=== PATIENT | male | born 1965 | race Caucasian/White ===

== ENCOUNTER 2021-02-07 09:22 | Outpatient (CLI) | payer OTHER, SELFPAY ==
--- NOTE | ~2021-02-07 | CT_ITS ---
EXAMINATION: CT lung screening DATE: 02/07/2021 09:53 INDICATION: Personal history of nicotine dependence, current smoker with 36 pack year history TECHNIQUE: Computed tomography (CT) of the chest was performed without intravenous contrast. The dose -length product (DLP) was 458.77 mGy-cm. 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 COMPARISON: None FINDINGS: There is mild emphysema. There are multiple 1 to 2 mm nodules in the lungs with an upper wang ng zone predominance. There is no pleural effusion or pneumothorax. The lungs are free of acute opaci ties. The gallbladder is surgically absent. No pathologically enlarged thoracic lymph nodes are ident ified. The heart size is normal. There are bridging osteophytes at multiple levels in the spine, cons istent with diffuse idiopathic skeletal hyperostosis (DISH). IMPRESSION: 1. Lung-RADS category 2: Benign appearance or behavior. Continue annual screening with noncontrast lo w-dose chest CT in 12 months. Reviewed, dictated and finalized at location A. IMPRESSION: 1. Lung-RADS category 2: Benign appearance or behavior. Continue annual screeni ng with noncontrast low-dose chest CT in 12 months.
== END 2021-02-07 09:23 | disposition home or self-care (01) ==
PROVIDERS: PCP Emergency Medicine; Visit Provider Emergency Medicine
DX: Z12.2 Encounter for screening for malignant neoplasm of respiratory organs (principal); Z87.891 Personal history of nicotine dependence
CPT/HCPCS: 71271

== ENCOUNTER 2021-02-21 16:06 | Outpatient (CLI) | payer OTHER, SELFPAY ==
--- NOTE | ~2021-02-21 | US_ITS ---
EXAMINATION: US soft tissue groin LT DATE: 02/21/2021 16:45 INDICATION: Left groin pain TECHNIQUE: Multiple grayscale and Doppler ultrasound images of the left inguinal region were obtained . COMPARISON: None FINDINGS: On one set of the cine images acquired by the fabricator artificial breast there appears to be a small amount of mobil e soft tissue within a small left inguinal hernia with hernia sac measuring approximately 1.5 x 1.9 x 1.8 cm in maximal diameter. Attempt was made with real-time imaging by the radiologist to ascertain the location of the suspected hernia and with this Flex either a direct or indirect hernia. The suspe cted hernia was however unable to be definitively identified and may have reduced. Assessment is chun jonathon also limited by shadowing scar tissue in the region reportedly related to childhood inguinal ashley ia repair. IMPRESSION: 1. Likely small left inguinal hernia seen on the initial cine images recorded by the fabricator artificial breast but unable to be identified on subsequent real-time imaging. Consider CT for more definitive determinatio n. Reviewed, dictated and finalized at location A. IMPRESSION: 1. Likely small left inguinal hernia seen on the initial cine images recorded b y the fabricator artificial breast but unable to be identified on subsequent real-time imaging. Consider CT for more definitive determination.
== END 2021-02-21 16:07 | disposition home or self-care (01) ==
PROVIDERS: PCP Emergency Medicine; Visit Provider Surgery
DX: R10.32 Left lower quadrant pain (principal); Z87.19 Personal history of other diseases of the digestive system; Z98.890 Other specified postprocedural states
CPT/HCPCS: 76882

== ENCOUNTER 2021-12-27 09:57 | Outpatient (CLI) | payer OTHER, SELFPAY ==
--- NOTE | ~2021-12-27 | MMUS_ITS ---
EXAMINATION: MM diagnostic mammo unilat LT, US breast LT limited HISTORY: Left breast lump TECHNIQUE: Left CC and bilateral MLO views.. CAD analysis was submitted and interpreted. High resolut ion left subareolar breast ultrasound was performed. COMPARISON: None BREAST PARENCHYMAL COMPOSITION: There are scattered areas of fibroglandular density. FINDINGS: MAMMOGRAPHIC FINDINGS: There is thyroiditis stroma in the subareolar area consistent with mild left gynecomastia. No soft ti ssue mass, architectural distortion, malignant calcification, skin thickening or retraction is detect ed. ULTRASOUND: Fibroglandular stroma is noted in the subareolar area. No discrete mass lesion is noted IMPRESSION: 1. Probable mild gynecomastia 2. 6 month diagnostic left mammogram follow-up is recommended BI-RADS category 3, probably benign findings. Reviewed, dictated and finalized at location A. IMPRESSION: 1. Probable mild gynecomastia 2. 6 month diagnostic left mammogram follow-up is recommended BI-RADS category 3, probably benign findings.
== END 2021-12-27 09:58 | disposition home or self-care (01) ==
PROVIDERS: PCP Emergency Medicine; Visit Provider Emergency Medicine
DX: N63.20 Unspecified lump in the left breast, unspecified quadrant (principal)
CPT/HCPCS: 76642; 77065

== ENCOUNTER 2022-06-20 10:55 | Outpatient (CLI) | payer OTHER, SELFPAY ==
--- NOTE | ~2022-06-20 | US_ITS ---
Thyroid ultrasound. Clinical History: Hypothyroid Findings: Real-time sonography of the thyroid gland was performed. The right lobe measures 4.5 x 2.0 x 2.1 cm. The left lobe measures 4.7 x 1.7 x 1.8 cm. The isthmus is 4 mm in AP diameter. At the posterior aspect of right mid pole, there is a 1.4 x 1.2 x 1.5 cm solid nodule which is essent ially isoechoic, with a thin hypoechoic rim, wider than tall. At the left thyroid mid pole, there is a 0.7 x 0.7 x 0.9 cm isoechoic, wider than tall thyroid nodule , solid. Impression: 1.5 cm nodule at the posterior right thyroid lobe, as detailed above, consistent with TR-3 lesion. Gi iona size, follow-up ultrasound in one year recommended.. 0.9 cm left thyroid lobe nodule, as detailed above, consistent with TR-3 lesion. Given size, no furth er follow-up required. Reviewed, dictated and finalized at location [] OR COST ESTIMATOR Impression: 1.5 cm nodule at the posterior right thyroid lobe, as detailed above, consisten t with TR-3 lesion. Given size, follow-up ultrasound in one year recommended.. 0.9 cm left thyroid lobe nodule, as detailed above, consistent with TR-3 lesion . Given size, no further follow-up required.
== END 2022-06-20 10:56 | disposition home or self-care (01) ==
PROVIDERS: PCP Emergency Medicine; Visit Provider Emergency Medicine
DX: E03.9 Hypothyroidism, unspecified (principal); E04.1 Nontoxic single thyroid nodule
CPT/HCPCS: 76536

== ENCOUNTER 2022-07-05 12:15 | Outpatient (CLI) | payer OTHER, SELFPAY ==
--- NOTE | ~2022-07-05 | MM_ITS ---
MM diagnostic anna LT w nancy DATE: 07/05/2022 12:48 INDICATION: Six-month follow-up of left breast lump. Patient reports lump is improved since 12/27/2021 TECHNIQUE: Bilateral MLO and left ML and CC views. Computer-aided detection. COMPARISON: 12/27/2021 diagnostic left mammogram and limited left breast ultrasound FINDINGS: There is diminished density in the subareolar area of the left breast 12/27/2021. No suspici ous mass or architectural distortion, malignant calcification, skin thickening or retraction is detec lolis. IMPRESSION: BI-RADS Category 2: Benign. Mild left gynecomastia, mildly improved since 12/27/2021 Reviewed, dictated and finalized at Location A. Reviewed, dictated and finalized at location A. 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
== END 2022-07-05 12:16 | disposition home or self-care (01) ==
PROVIDERS: PCP Emergency Medicine; Visit Provider Emergency Medicine
DX: N63.20 Unspecified lump in the left breast, unspecified quadrant (principal); R92.8 Other abnormal and inconclusive findings on diagnostic imaging of breast
CPT/HCPCS: 77061; 77065; G0279

== ENCOUNTER 2022-07-16 12:42 | Observation (INO) | payer OTHER, SELFPAY ==
[2022-07-16] VITALS (24 sets, daily range): BP systolic 99–114; BP diastolic 58–91; PULSE 55–68; RESP 10–22; TEMP 36.1–36.6; O2SAT 93–99; BMI 34.2
--- NOTE | ~2022-07-16 | XR_ITS ---
EXAMINATION: XR chest 1V portable DATE: 07/16/2022 13:24 INDICATION: Hypotension. TECHNIQUE: A single frontal view of the chest was obtained on 2 radiographs. COMPARISON: Chest CT 02/07/2021 FINDINGS: There is mild atelectasis at left lung base. No pleural effusion or pneumothorax. The heart size is normal. IMPRESSION: 1. Mild atelectasis at left lung base. Reviewed, dictated and finalized at location A. 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
--- NOTE | ~2022-07-16 | CT_ITS ---
EXAMINATION: CTA chest DATE: 07/16/2022 15:05 INDICATION: Potential and back and chest pain. TECHNIQUE: Computed tomographic angiography (CTA) of the chest was performed without and with 100 mL Omnipaque-350 intravenous contrast. Volume-rendered 3D-reconstructions of the aorta and large arterie s were constructed by the technologist on a separate workstation. Automated exposure control and iter ative reconstruction technique were employed. The dose-length product was 906.71 mGy-cm. COMPARISON: Chest CT dated 02/07/2021 FINDINGS: Mild emphysema. Mild discoid atelectasis at the lingula. Geographic regions of groundglass opacity in the dependent aspects of the bilateral lower lobes which could represent additional atelectasis or l ess likely pneumonia including COVID pneumonia. No septal line thickening to suggest pulmonary edema. No pleural effusion or pneumothorax. Heart size is normal. Atherosclerotic coronary artery calcifica tion. No pericardial effusion. Mildly aneurysmal ascending thoracic aorta which measures up to 4.2 x 4.1 cm. No dissection.. Likely benign subcentimeter hypodense left thyroid nodule. No pathologically enlarged thoracic lymphadenopathy. Left gynecomastia. Cholecystectomy clips at the gallbladder fossa . 11 mm hyperenhancing splenic lesion with smooth peripheral rim of enhancement most likely represent ing a hemangioma. Moderate thoracic spondylosis with bridging osteophytes at multiple levels consiste nt with diffuse idiopathic skeletal hyperostosis (DISH). IMPRESSION: 1. Mildly aneurysmal ascending thoracic aorta measuring up to 4.2 cm in maximal diameter. No dissecti on. 2. Mild emphysema with groundglass opacities in the dependent lower lobes and favor atelectasis over pneumonia. Reviewed, dictated and finalized at location A. 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 Mildly aneurysmal ascending thoracic aorta measuring up to 4.2 cm in maximal diameter. No dissection. 2. Mild emphysema with groundglass opacities in the dependent lower lobes and f avor atelectasis over pneumonia.
--- NOTE | 2022-07-16 13:03 | ECG_ITS ---
Measurements Intervals [place] Rate: 59 P: 34 [place]: 168 QRS: 48 QRSD: 114 T: 52 QT: 419 QTc: 416 Interpretive Statements SINUS BRADYCARDIA INCOMPLETE RIGHT BUNDLE BRANCH BLOCK BORDERLINE ECG NO PREVIOUS ECG AVAILABLE FOR COMPARISON Electronically Signed On 07-16-2022 13:17:50 CONCRETE BLOCK MOLDER by Will Reyes D.O.
--- NOTE | 2022-07-16 13:16 | ED.RECABL ---
HPI - Recheck/Abnormal Lab/Rx General Chief Complaint: Recheck/Abnormal Lab/Rx Stated Complaint: hypotension Time Seen by Provider: 07/16/22 13:08 History of Present Illness HPI narrative: Patient is a 56-year-old male with a history of hypertension, tobacco use presenting with hypotension. Patient states that he has been feeling generally rundown and increasingly fatigued for the last day. States he was at his PCPs office this morning for a checkup and the nurse noted that he looked very lethargic. They checked his blood pressure and found it to be 60s over 40s. They rechecked it multiple times and he remained hypotensive with systolics in the 70s to 90s. Patient states that he was having some radiating upper back pain that goes into his chest. States he was lightheaded as well. Currently, he states that he just feels tired and achy all over. Denies headache, numbness or weakness, shortness of breath, cough, abdominal pain, nausea or vomiting, diarrhea, worsening leg swelling. Related Data Home Medications Medication Instructions Recorded Confirmed acyclovir 400 mg tablet 400 mg PO BID 02/06/21 07/16/22 carvedilol 6.25 mg tablet (Coreg) 6.25 mg PO Q12H 02/06/21 07/16/22 epinephrine 0.3 mg/0.3 mL 0.3 mg IM ONCE PRN Anaphylaxis 02/06/21 07/16/22 injection, auto-injector (EpiPen) hydrochlorothiazide 25 mg tablet 25 mg PO DAILY 02/06/21 07/16/22 irbesartan 150 mg tablet 150 mg PO DAILY 02/06/21 07/16/22 lovastatin 40 mg tablet 40 mg PO DAILY 02/06/21 07/16/22 multivit with minerals-folic 1 tablet PO DAILY 02/06/21 07/16/22 acid-lycopene 0.4 mg-600 mcg tablet (Men's Daily Multivitamin-Mineral) spironolactone 25 mg tablet 25 mg PO DAILY 02/06/21 07/16/22 albuterol sulfate 90 mcg/actuation 2 puff inhalation Q4-6H PRN 07/16/22 07/16/22 aerosol inhaler Bronchospasm cholecalciferol (vitamin D3) 5,000 units PO DAILY 07/16/22 07/16/22 pregabalin 150 mg capsule 150 mg PO BID pain 07/16/22 07/16/22 Allergies Allergy/AdvReac Type Severity Reaction Status Date / Time Penicillins Allergy Unknown Unknown Verified 07/16/22 21:50 povidone-iodine Allergy Unknown Unknown Verified 07/16/22 21:50 tetanus and diphtheria Allergy Unknown Unknown Verified 07/16/22 21:50 toxoids Review of Systems Review of Systems: All systems reviewed & are unremarkable except as noted in HPI and below PMFSH Past Medical History Medical History (Updated 07/17/22 @ 13:44 by Lauren Wade MD) HTN (hypertension) Hyperlipidemia Neuropathy Varicose vein of leg Surgical History Surgical History H/O colectomy History of bilateral inguinal hernia repair Hx of cholecystectomy Family History Family History Father CHF (congestive heart failure) Mother CHF (congestive heart failure) Sibling Hypertension Unknown Diabetes mellitus Heart disease Cerebrovascular accident Social History Social History (Updated 07/17/22 @ 01:24 by Ashely Wyatt NP) Social History: caffeine use: soda the patient is single and has no children. 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 The patient smokes a pack and half a cigarettes a day. The patient stated he uses drink heavily but only drinks on occasion now code status full code Smoking packs per day: 1.5 Smoking cigarettes per day: 30.0 Years smoked: 38 Smoking pack-years: 57.00 Smoking status: Heavy tobacco smoker Alcohol intake: former Substance use: never Lack of Transportation: No Lack of Food: Never True Current Housing: I Have Housing Concerned About Future Housing: No Difficulty Paying Gas/Electric Bills: No Difficulty Paying for Meds: No Currently Unemployed: No Education: High School Diploma/GED Difficulty w/ Childcare or Family Care: No Spiritual care concerns: No Exam Narrative: GENERAL: Well-appearing, well-nourished, and
[2022-07-16] MEDS: SODIUM CHLORIDE 0.9% IV 1,000 ML 999 ML IV CONT ×2 (13:19→15:51)
[2022-07-16 13:53] LABS: Basophils Absolute Auto 0.1 K/mm3 (0.0-0.1); Basophils Percent Auto 0.7 % (0.2-1.2); Eosinophils Absolute Auto 0.3 K/mm3 (0-0.3); Eosinophils Percent Auto 2.4 % (0-4.4); Hemoglobin 16.6 g/dL (14.0-18.0); Immature Granulocyte Absolute 0.06 K/mm3 (0.00-0.031); Immature Granulocyte Percent A 0.6 % (0-0.5); Lymphocytes Absolute Auto 2.17 K/mm3 (0.9-3.2); Lymphocytes Percent Auto 20.4 % (18.3-44.2); Mean Corpuscular HGB Conc 32.5 g/dl (32-36); Mean Corpuscular Hemoglobin 30.5 pg (26-34); Mean Corpuscular Volume 93.8 fl (80-100); Mean Platelet Volume 9.3 fl (7.4-10.4); Monocytes Absolute Auto 1.3 K/mm3 (0.1-0.6); Monocytes Percent Auto 11.8 % (2.6-8.5); Neutrophils Absolute Auto 6.8 K/mm3 (1.3-6.7); Neutrophils Percent Auto 64.1 % (45.5-73.1); Platelet Count Result 207 k/mm3 (150-375); Red Blood Count 5.44 M/mm3 (4.6-6.20); Red Cell Distribution Width 13.6 % (11.5-14.5); White Blood Count 10.6 K/mm3 (4.5-10.0)
[2022-07-16 14:03] LABS: Add Urine Microscopic? YES; Appearance Urine Clear (Clear); Bilirubin Urine Negative (Negative); Blood Urine Trace-Intact (Negative); Color Urine Yellow (Yellow); Glucose Urine UA Negative (Negative); Ketones Urine Negative (Negative); Leukocyte Esterase Ur Negative LEU/UL (Negative); Nitrate Urine Negative (Negative); Protein Urine Negative (Negative); Urobilinogen Urine 0.2 mg/dL (<2.0)
[2022-07-16 14:06] LABS: INR 1.1; Partial Thromboplastin Time 27.8 SECONDS (22.3-36.8); Prothrombin Time 13.4 Seconds (11.1-14.7)
[2022-07-16 14:08] LABS: Alanine Aminotransferase 27 U/L (6-50); Albumin Level 4.1 g/dL (3.5-5.1); Alkaline Phosphatase 43 U/L (38-126); Anion Gap 4 mmol/L (8-16); Aspartate Amino Transferase 27 U/L (17-59); Bilirubin,Total 0.6 mg/dL (0.2-1.3); Blood Urea Nitrogen 20 mg/dL (9-20); Calcium 8.7 mg/dL (8.4-10.2); Carbon Dioxide 33 mmol/L (22-30); Chloride 97 mmol/L (98-107); Estimated CRCL calculation 91 ml/min; Estimated Glomerular Filt Rate > 60; Glucose 90 mg/dL (65-110); Potassium 3.8 mmol/L (3.4-5.0); Sodium 134 mmol/L (137-145)
[2022-07-16 14:09] LABS: Lactic Acid Reflex 1.1 mmol/L (0.7-2.0)
[2022-07-16 14:10] LABS: Mucus Urine Rare /lpf; RBC Urine 0-2 /hpf (0-2); WBC Urine 0-3 /hpf
[2022-07-16 14:19] LABS: NT Pro B Type Natriuretic Pept 25 pg/mL (5-100); Troponin I < 0.012 ng/mL (0.000-0.034)
[2022-07-16 14:32] LABS: Influenza A QL RT-PCR Negative (Negative); Influenza B QL RT-PCR Negative (Negative); SARS-CoV-2 RNA PCR Negative
[2022-07-16 16:36] LABS: Troponin I < 0.012 ng/mL (0.000-0.034)
--- NOTE | 2022-07-16 20:47 | ADMGEN ---
This patient, Walker Win, was admitted to Medical Room 342-01. Patient/family oriented to hospital policies and general routines including ID bracelet, bed and alarms, visiting hours, pain management, procedures, bathroom and other care routines, personal items, smoking policy, room service/diet, and visiting hours. Information on how to activate the Rapid Response Team has been discussed. Patient/Family are encouraged to report perceived risks to care and to ask questions if they do not understand what they are told or what they should do.
--- NOTE | 2022-07-16 23:32 | PM.IMHP ---
H&P: HPI History of Present Illness Date/Time: 07/16/22 23:32 Chief Complaint: low blood pressure Narrative: this is a 56-year-old male patient who has a history of tobacco use and hypertension. The patient stated that he has been feeling pretty fatigued for the last day. He went to his primary care doctor's office this morning and was very lethargic. His blood pressure was checked and his blood pressure was found to be in the 60s over 40s. His blood pressure was recheck multiple times. The patient remained hypotensive and he also felt lightheaded. Patient was fatigued and achy all over. He denied any nausea vomiting diarrhea or fever. Initial blood pressure was 99/58 and the highest was 114/91. The patient was given 2 L of IV fluids in the emergency room. White count noted to be 10.6. Sodium 134. Troponin and nonreactive x2. Patient was negative for influenza A/B and COVID. Chest CTA was read as. Mildly aneurysmal ascending thoracic aorta measuring up to 4.2 cm in maximal diameter. No dissection. 2. Mild emphysema with groundglass opacities in the dependent lower lobes and favor atelectasis over pneumonia. the patient is being admitted to observation status on the date of service of 07/16/2022. Review of Systems Review of Systems: See HPI All systems reviewed & are unremarkable except as noted in HPI and below Constitutional: Constitutional: Reports as per HPI and Reports no additional constitutional complaints Eyes: Eyes: Reports as per HPI and Reports no additional eye complaints ENT: Reports system reviewed and no additional complaints, except as documented and Reports Normal hearing present Cardiovascular: Cardiovascular: Reports no additional cardiovascular complaints Respiratory: Respiratory: Reports no additional respiratory complaints and Reports no additional respiratory complaints Gastrointestinal: Gastrointestinal: Reports as per HPI and Reports no additional gastrointestinal complaints Musculoskeletal: Musculoskeletal: Reports no additional musculoskeletal complaints Integumentary/Breasts: Skin/Breast: Reports system reviewed and no additional complaints, except as docu and Reports as per HPI Neurologic: Reports system reviewed and no additional complaints, except as documented, Reports as per HPI and Reports Normal hearing present Psychiatric: Psychiatric: Reports no additional psychiatric complaints and Reports as per HPI Endocrine: Endocrine: Reports no additional endocrine complaints Hematologic/Lymphatic: Hematologic/Lymphatic: Reports no additional hematologic/lymphatic complaints Allergic/Immunologic: Allergic/Immunologic: Reports no additional allergic/immunologic complaints PMFSH Past Medical History Medical History (Updated 07/17/22 @ 01:31 by Ashely Wyatt NP) HTN (hypertension) Hyperlipidemia Neuropathy Varicose vein of leg Surgical History Surgical History H/O colectomy History of bilateral inguinal hernia repair Hx of cholecystectomy Family History Family History Father CHF (congestive heart failure) Mother CHF (congestive heart failure) Sibling Hypertension Unknown Diabetes mellitus Heart disease Cerebrovascular accident Social History Social History (Updated 07/17/22 @ 01:24 by Ashely Wyatt NP) Social History: caffeine use: soda the patient is single and has no children. 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 The patient smokes a pack and half a cigarettes a day. The patient stated he uses drink heavily but only drinks on occasion now code status full code Smoking packs per day: 1.5 Smoking cigarettes per day: 30.0 Years smoked: 38 Smoking pack-years: 57.00 Smoking status: Heavy tobacco smoker Alcohol intake: former Substance use: never Lack of Transportation: No Lack of Food: Never True Current Housing: I Have
[2022-07-17] VITALS (9 sets, daily range): BP systolic 110–129; BP diastolic 62–72; PULSE 60–75; RESP 18; TEMP 36.5–36.8; O2SAT 94–96
--- NOTE | 2022-07-17 | ECHO_ITS ---
Patient Info Name: Walker Win Age: 56 years : 1965 Gender: Male Ht: 77 in Wt: 288 lbs BSA: 2.70 m2 HR: 61 bpm BP: 110 / 63 mmHg Heart Rhythm: Sinus Rhythm Technical Quality: Fair Exam Date: 07/17/2022 9:59 AM Exam Location: [facility] Patient Status: Inpatient Admit Date: 07/16/2022 Staff Ordering Physician: Karly Romero MD Adhesive Primer: Betsey Sutherland RDCS Attending Provider: Tavon Jeter MD Exam Type: CA echo doppler color flow Study Info Indications - hypotension Complete two-dimensional, color flow and Doppler transthoracic echocardiogram is performed. Summary 1. Complete two-dimensional, color flow and Doppler transthoracic echocardiogram is performed. 2. Left ventricular chamber dimension is normal. 3. Left ventricular systolic function is normal, estimated at 60-65%. 4. The left ventricular diastolic function is grade II diastolic dysfunction. 5. E/e' 11 is mildly elevated. 6. Left atrial chamber dimension is mildly enlarged. 7. The mitral valve has mildly calcified annulus. 8. No pulmonary hypertension, estimated pulmonary arterial systolic pressure is 18 mmHg. Left Ventricle E/e' 11 is mildly elevated. Left ventricular chamber dimension is normal. Left ventricular systolic function is normal, estimated at 60-65%. The left ventricular diastolic function is grade II diastolic dysfunction. Right Ventricle Right ventricular systolic function is normal and with normal TAPSE 2.6 cm. Right ventricular chamber dimension is normal. Left Atria Left atrial chamber dimension is mildly enlarged. Right Atria Right atrial chamber dimension is normal. Aortic Valve The aortic valve is trileaflet. There is no aortic valve stenosis. There is no aortic valve regurgitation. Pulmonic Valve There is no pulmonic regurgitation. Mitral Valve The mitral valve has mildly calcified annulus. There is no mitral valve stenosis. There is no mitral valve regurgitation. Tricuspid Valve There is no tricuspid valve regurgitation. No pulmonary hypertension, estimated pulmonary arterial systolic pressure is 18 mmHg. Pericardium/Pleural There is no pericardial effusion. Inferior Vena Cava Normal inferior vena cava with >50% collapse upon inspiration consistent with normal right atrial pressure, 5 mmHg. Aorta The aortic root size at the sinus of Valsalva is normal. Left Ventricular Outflow Tract Name Value Normal LVOT 2D LVOT Diameter 2.3 cm LVOT Doppler LVOT Peak Gradient 7 mmHg LVOT Mean Gradient 4 mmHg LVOT VTI 29 cm LVOT VTI/AV VTI Ratio 0.9 LVOT Stroke Volume 116 ml LVOT CO 6.8 l/min LVOT CI 2.5 l/min/m2 Pulmonic Valve Name Value Normal RVOT Doppler --
[2022-07-17 05:53] LABS: Basophils Percent Auto 0.4 % (0.2-1.2); Eosinophils Absolute Auto 0.1 K/mm3 (0-0.3); Eosinophils Percent Auto 1.1 % (0-4.4); Hematocrit 52.3 % (42.0-52.0); Immature Granulocyte Absolute 0.05 K/mm3 (0.00-0.031); Immature Granulocyte Percent A 0.5 % (0-0.5); Lymphocytes Absolute Auto 1.84 K/mm3 (0.9-3.2); Lymphocytes Percent Auto 17.9 % (18.3-44.2); Mean Corpuscular HGB Conc 32.5 g/dl (32-36); Mean Corpuscular Hemoglobin 30.5 pg (26-34); Mean Corpuscular Volume 93.7 fl (80-100); Mean Platelet Volume 9.5 fl (7.4-10.4); Monocytes Absolute Auto 0.9 K/mm3 (0.1-0.6); Monocytes Percent Auto 8.3 % (2.6-8.5); Neutrophils Absolute Auto 7.4 K/mm3 (1.3-6.7); Neutrophils Percent Auto 71.8 % (45.5-73.1); Platelet Count Result 199 k/mm3 (150-375); Red Blood Count 5.58 M/mm3 (4.6-6.20); Red Cell Distribution Width 13.8 % (11.5-14.5); White Blood Count 10.3 K/mm3 (4.5-10.0)
[2022-07-17 05:55] LABS: Lactic Acid Reflex 1.2 mmol/L (0.7-2.0)
[2022-07-17 05:58] LABS: Alanine Aminotransferase 28 U/L (6-50); Alkaline Phosphatase 48 U/L (38-126); Anion Gap 5 mmol/L (8-16); Aspartate Amino Transferase 28 U/L (17-59); Bilirubin,Total 0.8 mg/dL (0.2-1.3); Blood Urea Nitrogen 15 mg/dL (9-20); Calcium 8.7 mg/dL (8.4-10.2); Carbon Dioxide 28 mmol/L (22-30); Chloride 102 mmol/L (98-107); Estimated CRCL calculation 120 ml/min; Estimated Glomerular Filt Rate > 60; Glucose 120 mg/dL (65-110); Sodium 135 mmol/L (137-145)
[2022-07-17] MEDS: LOVASTATIN 20 MG TABLET 40 MG PO (08:19)
[2022-07-17] MEDS: PREGABALIN (*CRX) 75 MG CAPSULE 150 MG PO ×2 (08:19→20:19)
[2022-07-17] MEDS: ACYCLOVIR 400 MG TABLET PO ×2 (08:19→17:39)
--- NOTE | 2022-07-17 11:00 | PCPTNOTE ---
Spoke with hospitalist about pt being independent with RN and OT. Hospitalist OK to Discharge PT orders without seeing pt. RN aware.
--- NOTE | 2022-07-17 17:02 | PM.IMPN ---
Progress Note: A&P Assessment and Plan (1) Hypotension: Code(s): I95.9 - Hypotension, unspecified Status: Acute Assessment and Plan: -unsure of etiology. The patient stated that he takes his normal medication and has not taken more than normal. -Coreg is on hold at this time. - hydrochlorothiazide on hold at this time. -hydrochlorothiazide on hold at this time. -her% on hold at this time. 07/17/2021 interval history: patient is a 56-year-old male moderately obese with history of hypertension being treated with Coreg 6.25 mg b.i.d., hydrochlorothiazide 25 mg q.day, irbesartan 150mg qdaily, and spironolactone 25, patient had been fatigue and tired was seen at the his primary care doctor's office and was found to significant hypotension was sent to emergency department, patient received 2 L of IV bolus with some improvement, currently holding Coreg, hydrochlorothiazide, and spironolactone patient started on losartan 40 mg q.day, to further evaluate will do the cardiac echo to look for any structural pathology, will follow up on cardiac echo and further recommendation to follow, if everything is clinically stable will discharge the patient with instruction to gradually resume patient's home medication, will have a PT OT evaluate the patient. (2) Hyperlipidemia: Code(s): E78.5 - Hyperlipidemia, unspecified Status: Acute Assessment and Plan: continue with lovastatin (3) Tobacco abuse: Code(s): Z72.0 - Tobacco use Status: Acute Assessment and Plan: we spoke about smoking cessation less than 5 minutes. The patient stated that he is doing okay at this time and does not need a nicotine patch. Continue with smoking cessation information (4) COPD (chronic obstructive pulmonary disease): Qualifiers: COPD type: unspecified COPD Qualified Code(s): J44.9 - Chronic obstructive pulmonary disease, unspecified Code(s): J44.9 - Chronic obstructive pulmonary disease, unspecified Status: Acute Assessment and Plan: -continue with albuterol inhalers (5) Aneurysm: Code(s): I72.9 - Aneurysm of unspecified site Status: Acute Assessment and Plan: Mildly aneurysmal ascending thoracic aorta measuring up to 4.2 cm in maximal diameter. No dissection. patient will need to continue to follow-up outpatient. (6) Neuropathy: Code(s): G62.9 - Polyneuropathy, unspecified Status: Acute Assessment and Plan: continue with Kassandra Subjective Date/time seen: 07/17/22 17:02 Chief Complaint: ?low blood pressure HPI-Narrative: ?this is a 56-year-old male patient who has a history of tobacco use and hypertension.? The patient stated that he has been feeling pretty fatigued for the last day.? He went to his primary care doctor's office this morning and was very lethargic.? His blood pressure was checked and his blood pressure was found to be in the 60s over 40s.? His blood pressure was recheck multiple times.? The patient remained hypotensive and he also felt lightheaded.? Patient was fatigued and achy all over.? He denied any nausea vomiting diarrhea or fever.? Initial blood pressure was 99/58 and the highest was 114/91.? The patient was given 2 L of IV fluids in the emergency room.? White count noted to be 10.6.? Sodium 134.? Troponin and nonreactive x2.? Patient was negative for influenza A/B and COVID.? Chest CTA was read as. Mildly aneurysmal ascending thoracic aorta measuring up to 4.2 cm in maximal diameter. No dissection. 2. Mild emphysema with groundglass opacities in the dependent lower lobes and favor atelectasis over pneumonia. the patient is being admitted to observation status on the date of service of 07/16/2022. 07/17/2021 interval history: patient is a 56-year-old male moderately obese with history of hypertension being treated with Coreg 6.25 mg b.i.d., hydrochlorothiazide 25 mg q.day, irbesartan 150mg qdaily, and spironolactone 25
[2022-07-18] VITALS: PULSE 65
[2022-07-18 04:00] VITALS: PULSE 74
[2022-07-18 05:24] VITALS: BP 125/64; PULSE 67; RESP 18; TEMP 36.3; O2SAT 94
[2022-07-18 05:53] LABS: Hematocrit 51.8 % (42.0-52.0); Hemoglobin 16.8 g/dL (14.0-18.0); Mean Corpuscular HGB Conc 32.4 g/dl (32-36); Mean Corpuscular Hemoglobin 30.6 pg (26-34); Mean Corpuscular Volume 94.4 fl (80-100); Mean Platelet Volume 9.6 fl (7.4-10.4); Platelet Count Result 195 k/mm3 (150-375); Red Blood Count 5.49 M/mm3 (4.6-6.20); Red Cell Distribution Width 13.7 % (11.5-14.5)
[2022-07-18 06:05] LABS: Anion Gap 5 mmol/L (8-16); Blood Urea Nitrogen 13 mg/dL (9-20); Calcium 8.6 mg/dL (8.4-10.2); Carbon Dioxide 29 mmol/L (22-30); Chloride 98 mmol/L (98-107); Estimated CRCL calculation 120 ml/min; Estimated Glomerular Filt Rate > 60; Glucose 102 mg/dL (65-110); Sodium 132 mmol/L (137-145)
[2022-07-18 08:00] VITALS: PULSE 78
[2022-07-18] MEDS: ACYCLOVIR 400 MG TABLET PO (08:36)
[2022-07-18] MEDS: LOVASTATIN 20 MG TABLET 40 MG PO (08:36)
[2022-07-18] MEDS: PREGABALIN (*CRX) 75 MG CAPSULE 150 MG PO (08:37)
--- NOTE | 2022-07-18 11:42 | PM.DS ---
DS: Admitting Diagnosis Discharge Date July 18, 2022 Admitting Diagnosis Hypotension DS: Discharge Diagnosis Discharge Diagnosis (1) Hypotension: Code(s): I95.9 - Hypotension, unspecified Status: Acute Assessment and Plan: -unsure of etiology. The patient stated that he takes his normal medication and has not taken more than normal. -Coreg is on hold at this time. - hydrochlorothiazide on hold at this time. -hydrochlorothiazide on hold at this time. -her% on hold at this time. 07/17/2021 interval history: patient is a 56-year-old male moderately obese with history of hypertension being treated with Coreg 6.25 mg b.i.d., hydrochlorothiazide 25 mg q.day, irbesartan 150mg qdaily, and spironolactone 25, patient had been fatigue and tired was seen at the his primary care doctor's office and was found to significant hypotension was sent to emergency department, patient received 2 L of IV bolus with some improvement, currently holding Coreg, hydrochlorothiazide, and spironolactone patient started on losartan 40 mg q.day, to further evaluate will do the cardiac echo to look for any structural pathology, will follow up on cardiac echo and further recommendation to follow, if everything is clinically stable will discharge the patient with instruction to gradually resume patient's home medication, will have a PT OT evaluate the patient. (2) Hyperlipidemia: Code(s): E78.5 - Hyperlipidemia, unspecified Status: Acute Assessment and Plan: continue with lovastatin (3) Tobacco abuse: Code(s): Z72.0 - Tobacco use Status: Acute Assessment and Plan: we spoke about smoking cessation less than 5 minutes. The patient stated that he is doing okay at this time and does not need a nicotine patch. Continue with smoking cessation information (4) COPD (chronic obstructive pulmonary disease): Qualifiers: COPD type: unspecified COPD Qualified Code(s): J44.9 - Chronic obstructive pulmonary disease, unspecified Code(s): J44.9 - Chronic obstructive pulmonary disease, unspecified Status: Acute Assessment and Plan: -continue with albuterol inhalers (5) Aneurysm: Code(s): I72.9 - Aneurysm of unspecified site Status: Acute Assessment and Plan: Mildly aneurysmal ascending thoracic aorta measuring up to 4.2 cm in maximal diameter. No dissection. patient will need to continue to follow-up outpatient. (6) Neuropathy: Code(s): G62.9 - Polyneuropathy, unspecified Status: Acute Assessment and Plan: continue with Kassandra DS: Summary Hospital Course Hospital Course: 56-year-old male came in with hypotension. Has been dieting recently and blood pressure is significantly dropped. Workup unrevealing. He was having some orthostatic hypotension the subsequent resolved after stopping his blood pressure medications. Otherwise patient is doing well he can follow-up with his primary care physician Time Spent with Patient Time attestation: Total time spent providing and/or coordinating discharge services: Exam Const: General: cooperative, healthy appearing, comfortable, no acute distress, well developed, awake, Physically active, average body habitus and well nourished Nutritional Appearance: average body habitus and well nourished Orientation/consciousness: oriented to person, oriented to place, oriented to time and patient oriented x3 Limitations: no limitations HENMT: Head: normal to inspection, No palpable skull fracture present, normocephalic and atraumatic Ears: hearing grossly normal bilaterally and external ears normal Face/Nose/Sinus: Normal external nose present and Normal nares present Eyes: General: appearance normal, both eyes and all related structures Alignment and Position: alignment normal Periorbital: periorbital findings normal Eyelids: eyelids normal Sclera: sclerae normal Pupils: Equal, round and reactiv
== END 2022-07-18 11:52 | disposition home or self-care (01) ==
LOC: ANHED 13:24 → ANH3MED 20:24 → ANH3MEDSUR 07-19 13:48
PROVIDERS: Emergency Medicine; Family Medicine; Nurse Practitioner; Admitting Provider Internal Medicine; Emergency Provider Emergency Medicine; PCP Emergency Medicine; Visit Provider Chiropractor
DX: I95.9 Hypotension, unspecified (principal); I11.9 Hypertensive heart disease without heart failure; M54.9 Dorsalgia, unspecified; E78.5 Hyperlipidemia, unspecified; J44.9 Chronic obstructive pulmonary disease, unspecified; I71.21 Aneurysm of the ascending aorta, without rupture; G62.9 Polyneuropathy, unspecified; E66.9 Obesity, unspecified; Z68.34 Body mass index [BMI] 34.0-34.9, adult; F17.210 Nicotine dependence, cigarettes, uncomplicated; D72.829 Elevated white blood cell count, unspecified; R00.1 Bradycardia, unspecified; Z20.822 Contact with and (suspected) exposure to COVID-19; I45.10 Unspecified right bundle-branch block; R42 Dizziness and giddiness; J98.11 Atelectasis; R53.83 Other fatigue; I34.81 Nonrheumatic mitral (valve) annulus calcification; R07.9 Chest pain, unspecified; Z79.51 Long term (current) use of inhaled steroids; Z79.899 Other long term (current) drug therapy; Z82.49 Family history of ischemic heart disease and other diseases of the circulatory system
CPT/HCPCS: 36415; 71045; 71275; 80048; 80053; 81001; 83605; 83735; 83880; 84443; 84484; 85025; 85027; 85610; 85730; 87636; 93005; 93306; 96360; 96361; 97165; 99285; A9270; G0378; G0379; J7030; Q9967

== ENCOUNTER 2023-05-08 13:32 | Outpatient (CLI) | payer MEDICARE, MEDICAID, SELFPAY ==
--- NOTE | ~2023-05-08 | US_ITS ---
EXAMINATION: US thyroid DATE: 05/08/2023 14:15 INDICATION: Thyroid nodule. TECHNIQUE: Multiple ultrasound images of the thyroid were obtained. COMPARISON: Thyroid ultrasound 06/20/2022 FINDINGS: The right thyroid lobe measures 4.3 x 1.9 x 1.8 cm. The left thyroid lobe measures 4.3 x 1.6 x 1.7 c m. In the left thyroid lobe, there is a 7 mm solid, isoechoic, taller than wide nodule with smooth m argin without echogenic foci (TI-RADS TR4). In the right thyroid lobe, there is a 13 mm solid, isoech oic, wider than tall nodule with smooth margin without echogenic foci (TR3). IMPRESSION: 1. Small thyroid nodules, likely not clinically significant. No follow-up is needed. Reviewed, dictated and finalized at location E. IMPRESSION: 1. Small thyroid nodules, likely not clinically significant. No follow-up is ne eded.
== END 2023-05-08 13:33 | disposition home or self-care (01) ==
PROVIDERS: PCP Emergency Medicine; Visit Provider Emergency Medicine
DX: E04.2 Nontoxic multinodular goiter (principal)
CPT/HCPCS: 76536